=== PATIENT | female | born 1955 | race Two or more races ===

== ENCOUNTER 2021-10-10 06:07 | Day surgery (SDC) | payer OTHER ==
[~2021-10-10 06:07] MED LIST: DIOVAN40 MG PO; LIPITO PO
== END 2021-10-10 15:05 | disposition home or self-care (01) ==
LOC: CIR.AMB 06:07
PROVIDERS: ATTEND Orthopaedic Surgery
DX: M75.121 Complete rotator cuff tear or rupture of right shoulder, not specified as traumatic (principal); M75.21 Bicipital tendinitis, right shoulder; I10 Essential (primary) hypertension; M24.111 Other articular cartilage disorders, right shoulder